=== PATIENT | female | born 1950 | race Caucasian/White ===

== ENCOUNTER 2018-02-14 05:01 | Emergency (ER) | payer MEDICAID, OTHER ==
[~2018-02-14] VITALS: Ht 162.6 cm; Wt 82.0 kg
[2018-02-14] MEDS ORDERED: SODIUM CHLORIDE 0.9% 500 ML IV ONE (06:43)
[2018-02-14] MEDS ORDERED: MECLIZINE 25MG TABLET PO ONE (06:45)
[2018-02-14 07:15] LABS: BASOPHILS % 0.7 % (0.0-2.0); HEMATOCRIT. 34.7 % (36.0-48.0); HEMOGLOBIN. 11.7 g/dL (12.0-16.0); LYMPHOCYTES % 11.1 % (20.0-50.0); MEAN CORPUSCULAR HEMOGLOBIN 29.4 pg (28.0-32.0); MEAN CORPUSCULAR VOLUME 87.5 fL (81.0-99.0); MEAN PLATELET VOLUME 7.8 fl (7.4-10.4); NEUTROPHILS % 82.2 % (40.0-76.0); PLATELET 324 x1000/uL (130-400); RED BLOOD CELL COUNT 3.97 mill/uL (4.2-5.4); RED CELL DISTRIBUTION WIDTH 13.6 % (11.6-14.6)
[2018-02-14 07:20] LABS: CHLORIDE 98 mEq/L (98-107)
[2018-02-14] MEDS ORDERED: MAGNESIUM 2 G PREMIX 50 ML IV ONE (08:15)
[2018-02-14 08:40] VITALS: BP 143/78
== END 2018-02-14 08:41 | disposition home or self-care (01) ==
LOC: ER 05:17
DX: R42 Dizziness and giddiness (principal); I10 Essential (primary) hypertension; D72.829 Elevated white blood cell count, unspecified; E83.42 Hypomagnesemia; D64.9 Anemia, unspecified; Z87.891 Personal history of nicotine dependence; Z90.49 Acquired absence of other specified parts of digestive tract
CPT/HCPCS: 36415; 70450; 71045; 80053; 83735; 85025; 93005; 96360; 99285; J7040; J8597

== ENCOUNTER 2018-02-23 01:00 | Inpatient (IN) | payer OTHER, MEDICAID ==
[~2018-02-23] VITALS: Ht 152.4 cm; Wt 80.7 kg
[2018-02-23] MEDS ORDERED: MECL-127 MT (03:46)
[2018-02-23] MEDS ORDERED: ONDANSETRON HCL 4MG/2ML VIAL IV STA (04:35)
[2018-02-23] MEDS ORDERED: SODIUM CHLORIDE 0.9% 1,000 ML IV ONE (04:35)
[2018-02-23] MEDS ORDERED: SODIUM CHLORIDE 0.9% 1,000 ML IV SCH (05:33)
[2018-02-23 06:16] LABS: BASOPHILS % 0.9 % (0.0-2.0); EOSINOPHILS % 1.3 % (0.0-5.0); HEMATOCRIT. 30.8 % (36.0-48.0); HEMOGLOBIN. 10.6 g/dL (12.0-16.0); LYMPHOCYTES % 16.4 % (20.0-50.0); MEAN CORPUSCULAR HEMOGLOBIN 30.3 pg (28.0-32.0); MEAN CORPUSCULAR VOLUME 87.6 fL (81.0-99.0); NEUTROPHILS % 77.4 % (40.0-76.0); PLATELET 308 x1000/uL (130-400); RED BLOOD CELL COUNT 3.51 mill/uL (4.2-5.4); RED CELL DISTRIBUTION WIDTH 13.5 % (11.6-14.6)
[2018-02-23 06:23] LABS: CHLORIDE 100 mEq/L (98-107)
[2018-02-23 09:30] VITALS: BP 118/78
[2018-02-23] MEDS ORDERED: ACETAMINOPHEN 325MG TABLET PO PRN (11:00)
[2018-02-23] MEDS ORDERED: DOCUSATE SODIUM 100MG CAPSULE PO PRN (11:00)
[2018-02-23] MEDS ORDERED: ONDANSETRON HCL 4MG/2ML VIAL IV PRN (11:00)
[2018-02-23] MEDS ORDERED: MECLIZINE 12.5MG TABLET PO PRN (11:00)
[2018-02-23] MEDS ORDERED: IPRATROPIUM/ALBUTEROL 0.5-3(2.5)MG/3ML NEB INH PRN (11:00)
[2018-02-23] MEDS ORDERED: CLONIDINE 0.1MG TABLET PO PRN (11:00)
[2018-02-23 12:00] VITALS: BP 100/51
[2018-02-23] MEDS ORDERED: LORA0.5T2 MT (12:14)
[2018-02-23] MEDS ORDERED: ARIP1SOL MT (12:14)
[2018-02-23] MEDS ORDERED: BENA1TAB19 MT (12:14)
[2018-02-23] MEDS ORDERED: MECL-109 MT (12:14)
[2018-02-23] MEDS ORDERED: METF500T6 MT (12:14)
[2018-02-23] MEDS: FLUTICASONE PROPIONATE 50MCG/SPRAY BOTTLE BOTHNSTRLS SCH (13:00)
[2018-02-23] MEDS ORDERED: DEXTROSE 50% WATER 50ML SYRINGE IV PRN (13:15)
[2018-02-23] MEDS: ENOXAPARIN 40MG/0.4ML SYR SUBCUT SCH (13:38)
[2018-02-23] MEDS: SODIUM CHLORIDE 0.9% 1,000 ML IV SCH (13:38)
[2018-02-23 16:00] VITALS: BP 99/55
[2018-02-23 16:03] LABS: CREATINE KINASE 56 IU/L (26-192); CREATINE KINASE MB FRACTION 0.5 ng/mL (0.5-3.6)
[2018-02-23] MEDS: BLOOD SUGAR DIAGNOSTIC STRIP TEST SCH ×2 (17:17→20:53)
[2018-02-23] MEDS: INSULIN LISPRO 100 UNITS/ML SUBCUT SCH ×2 (17:38→20:53)
[2018-02-23 19:57] VITALS: BP 138/57
[2018-02-24] VITALS: BP 113/57
[2018-02-24 00:28] LABS: CREATINE KINASE 54 IU/L (26-192)
[2018-02-24 00:30] LABS: CREATINE KINASE MB FRACTION 0.7 ng/mL (0.5-3.6)
[2018-02-24] MEDS: SODIUM CHLORIDE 0.9% 1,000 ML IV SCH (03:00)
[2018-02-24 04:00] VITALS: BP_SYST 113; BP_SYST 119; BP_SYST 128; BP_DIAS 61; BP_DIAS 75; BP_DIAS 78
[2018-02-24 06:32] LABS: BASOPHILS % 1.3 % (0.0-2.0); EOSINOPHILS % 7.3 % (0.0-5.0); HEMATOCRIT. 30.4 % (36.0-48.0); HEMOGLOBIN. 10.2 g/dL (12.0-16.0); LYMPHOCYTES % 41.8 % (20.0-50.0); MEAN CORPUSCULAR HEMOGLOBIN 29.3 pg (28.0-32.0); MEAN CORPUSCULAR VOLUME 87.5 fL (81.0-99.0); MEAN PLATELET VOLUME 8.3 fl (7.4-10.4); MONOCYTES % 6.2 % (2.0-8.0); NEUTROPHILS % 43.4 % (40.0-76.0); PLATELET 297 x1000/uL (130-400); RED BLOOD CELL COUNT 3.48 mill/uL (4.2-5.4); RED CELL DISTRIBUTION WIDTH 13.8 % (11.6-14.6)
[2018-02-24] MEDS: BLOOD SUGAR DIAGNOSTIC STRIP TEST SCH ×3 (06:55→16:48)
[2018-02-24] MEDS: INSULIN LISPRO 100 UNITS/ML SUBCUT SCH ×3 (06:55→16:48)
[2018-02-24] MEDS: FLUTICASONE PROPIONATE 50MCG/SPRAY BOTTLE BOTHNSTRLS SCH (08:23)
[2018-02-24] MEDS: ENOXAPARIN 40MG/0.4ML SYR SUBCUT SCH (08:23)
[2018-02-24 08:26] VITALS: BP 113/67
[2018-02-24 12:39] VITALS: BP 101/53
[2018-02-24 16:49] VITALS: BP 132/68
[2018-02-24 17:01] VITALS: BP 132/68
== END 2018-02-24 17:54 | disposition home or self-care (01) | DRG 149 ==
LOC: ER 01:00 → 8WST 05:34 → EDBEDREQ 05:34 → ENRESERV 06:53
PROVIDERS: ADMIT Internal Medicine; ATTEND Internal Medicine
DX: R42 Dizziness and giddiness (principal); E11.9 Type 2 diabetes mellitus without complications; I10 Essential (primary) hypertension; R26.9 Unspecified abnormalities of gait and mobility; F41.9 Anxiety disorder, unspecified; Z87.891 Personal history of nicotine dependence; Z90.49 Acquired absence of other specified parts of digestive tract; Z79.899 Other long term (current) drug therapy
CPT/HCPCS: 36415; 70450; 70544; 70553; 71045; 80048; 80053; 82550; 82553; 82962; 84484; 85025; 93005; 93306; 93880; 96361; 96374; 97162; 99285; J1650; J2405; J7030

== ENCOUNTER 2018-10-18 14:51 | Inpatient (IN) | payer MEDICARE, MEDICAID ==
[~2018-10-18] VITALS: Ht 154.9 cm; Wt 53.7 kg
[~2018-10-18 14:51] MED LIST: ARIP1SOL MT; BENA1TAB19 MT; LORA0.5T2 MT; MECL-109 MT; MECL-127 MT; METF-414 MT
[2018-10-18] MEDS ORDERED: IPRATROPIUM BROMIDE (0.02%) 0.5MG/2.5ML NEB HHN STA (16:44)
[2018-10-18] MEDS ORDERED: ALBUTEROL (0.083%) 2.5MG/3ML NEB HHN STA (16:44)
[2018-10-18] MEDS ORDERED: METHYLPREDNISOLONE SOD SUCC 125 MG/2 ML VIAL IV STA (16:44)
[2018-10-18 17:40] LABS: BASOPHILS % 0.7 % (0.0-2.0); EOSINOPHILS % 11.4 % (0.0-5.0); HEMATOCRIT. 36.3 % (36.0-48.0); HEMOGLOBIN. 12.2 g/dL (12.0-16.0); LYMPHOCYTES % 19.1 % (20.0-50.0); MEAN CORPUSCULAR HEMOGLOBIN 30.2 pg (28.0-32.0); MEAN CORPUSCULAR VOLUME 89.7 fL (81.0-99.0); MEAN PLATELET VOLUME 7.8 fl (7.4-10.4); MONOCYTES % 5.7 % (2.0-8.0); NEUTROPHILS % 63.1 % (40.0-76.0); PLATELET 369 x1000/uL (130-400); RED BLOOD CELL COUNT 4.05 mill/uL (4.2-5.4); RED CELL DISTRIBUTION WIDTH 13.5 % (11.6-14.6)
[2018-10-18 17:47] LABS: CHLORIDE 93 mEq/L (98-107)
[2018-10-18] MEDS ORDERED: ALBUTEROL (0.083%) 2.5MG/3ML NEB HHN ONE (19:15)
[2018-10-18] MEDS ORDERED: AZITHROMYCIN 500 MG in DEXT 5% WATER 250 ML IV SCH (20:00)
[2018-10-18] MEDS ORDERED: ACETAMINOPHEN 325MG TABLET PO PRN (20:00)
[2018-10-18] MEDS ORDERED: DOCUSATE SODIUM 100MG CAPSULE PO PRN (20:00)
[2018-10-18] MEDS ORDERED: SODIUM CHLORIDE 0.9% 1,000 ML IV ONE (20:00)
[2018-10-18] MEDS ORDERED: ONDANSETRON HCL 4MG/2ML INJ IV PRN (20:00)
[2018-10-18] MEDS ORDERED: LORAZEPAM 2MG/ML CPJ IV PRN (20:00)
[2018-10-18] MEDS ORDERED: IPRATROPIUM/ALBUTEROL 0.5-3(2.5)MG/3ML NEB INH PRN (20:00)
[2018-10-18] MEDS ORDERED: CLONIDINE 0.1MG TABLET PO PRN (20:00)
[2018-10-18] MEDS ORDERED: CEFTRIAXONE 1 G PREMIX 50 ML IV NR (21:00)
[2018-10-18 23:30] VITALS: BP 149/92
[2018-10-19 00:08] VITALS: BP 149/92
[2018-10-19] MEDS ORDERED: PARO40TA75 PO (00:55)
[2018-10-19] MEDS ORDERED: MECL-109 PO (00:55)
[2018-10-19] MEDS ORDERED: ARIP5TAB19 PO (00:55)
[2018-10-19] MEDS: SODIUM CHLORIDE 0.9% 1,000 ML IV SCH ×2 (02:21→14:50)
[2018-10-19 04:00] VITALS: BP 116/76
[2018-10-19] MEDS ORDERED: DEXTROSE 50% WATER 50ML SYRINGE IV PRN (05:45)
[2018-10-19] MEDS: AZITHROMYCIN 500 MG in DEXT 5% WATER 250 ML IV SCH (05:53)
[2018-10-19] MEDS: METHYLPREDNISOLONE SOD SUCC 40 MG/ML VIAL IV SCH ×4 (05:55→23:44)
[2018-10-19] MEDS: BLOOD SUGAR DIAGNOSTIC STRIP TEST SCH ×4 (06:38→21:00)
[2018-10-19] MEDS: INSULIN LISPRO 100 UNITS/ML SUBCUT SCH ×4 (07:22→21:42)
[2018-10-19 07:41] LABS: BASOPHILS % 0.1 % (0.0-2.0); EOSINOPHILS % 0.1 % (0.0-5.0); HEMATOCRIT. 33.9 % (36.0-48.0); HEMOGLOBIN. 11.1 g/dL (12.0-16.0); LYMPHOCYTES % 9.2 % (20.0-50.0); MEAN CORPUSCULAR HEMOGLOBIN 29.6 pg (28.0-32.0); MEAN CORPUSCULAR VOLUME 90.2 fL (81.0-99.0); MEAN PLATELET VOLUME 8.1 fl (7.4-10.4); NEUTROPHILS % 89.6 % (40.0-76.0); PLATELET 343 x1000/uL (130-400); RED BLOOD CELL COUNT 3.76 mill/uL (4.2-5.4); RED CELL DISTRIBUTION WIDTH 13.2 % (11.6-14.6)
[2018-10-19 07:59] LABS: CHLORIDE 96 mEq/L (98-107)
[2018-10-19 08:00] VITALS: BP 122/65
[2018-10-19] MEDS: IPRATROPIUM/ALBUTEROL 0.5-3(2.5)MG/3ML NEB HHN SCH ×4 (09:32→21:08)
[2018-10-19] MEDS: ENOXAPARIN 40MG/0.4ML SYR SUBCUT SCH (09:35)
[2018-10-19 12:00] VITALS: BP 112/66
[2018-10-19] MEDS ORDERED: CEFTRIAXONE 1 G PREMIX 50 ML IV SCH (14:00)
[2018-10-19 16:00] VITALS: BP 102/63
[2018-10-19] MEDS ORDERED: MEDICATION NOT ON FORMULARY EA (Meclizine Hcl 25 MG) PO SCH (16:30)
[2018-10-19] MEDS ORDERED: LORAZEPAM MT PRN (16:30)
[2018-10-19] MEDS ORDERED: MECLIZINE 25MG TABLET PO PRN (17:00)
[2018-10-19] MEDS ORDERED: LORAZEPAM 0.5MG TABLET PO PRN (17:00)
[2018-10-19 20:00] VITALS: BP 143/62
[2018-10-19] MEDS: CEFTRIAXONE 1 G PREMIX 50 ML IV SCH (21:43)
[2018-10-19] MEDS: GUAIFENESIN/CODEINE 200-20MG/10ML UDC PO PRN (23:47)
[2018-10-20] VITALS: BP 143/62
[2018-10-20] MEDS: IPRATROPIUM/ALBUTEROL 0.5-3(2.5)MG/3ML NEB HHN SCH ×6 (01:05→14:01)
[2018-10-20 04:00] VITALS: BP 157/79
[2018-10-20] MEDS: AZITHROMYCIN 500 MG in DEXT 5% WATER 250 ML IV SCH (04:55)
[2018-10-20] MEDS: METHYLPREDNISOLONE SOD SUCC 40 MG/ML VIAL IV SCH ×4 (05:10→23:01)
[2018-10-20] MEDS: GUAIFENESIN/CODEINE 200-20MG/10ML UDC PO PRN ×2 (05:10→15:41)
[2018-10-20] MEDS: BLOOD SUGAR DIAGNOSTIC STRIP TEST SCH ×4 (06:42→21:24)
[2018-10-20] MEDS: INSULIN LISPRO 100 UNITS/ML SUBCUT SCH ×4 (06:45→21:40)
[2018-10-20 08:00] VITALS: BP 110/59
[2018-10-20] MEDS ORDERED: HYDROCHLOROTHIAZIDE MT SCH (09:00)
[2018-10-20] MEDS ORDERED: [UNRECOGNIZED DRUG - OTHER] MT SCH (09:00)
[2018-10-20] MEDS ORDERED: BENAZEPRIL MT SCH (09:00)
[2018-10-20] MEDS: BENAZEPRIL 10MG TABLET PO SCH (09:15)
[2018-10-20] MEDS: ARIPIPRAZOLE 5MG TABLET PO SCH (09:15)
[2018-10-20] MEDS: ENOXAPARIN 40MG/0.4ML SYR SUBCUT SCH (09:15)
[2018-10-20] MEDS: HYDROCHLOROTHIAZIDE 25MG TABLET PO SCH (09:15)
[2018-10-20 12:00] VITALS: BP 109/64
[2018-10-20 16:00] VITALS: BP 91/63
[2018-10-20 20:00] VITALS: BP 135/72
[2018-10-20] MEDS: CEFTRIAXONE 1 G PREMIX 50 ML IV SCH (21:24)
[2018-10-21] VITALS: BP 116/63
[2018-10-21] MEDS: IPRATROPIUM/ALBUTEROL 0.5-3(2.5)MG/3ML NEB HHN SCH ×4 (02:12→21:00)
[2018-10-21 04:00] VITALS: BP 156/90
[2018-10-21] MEDS: METHYLPREDNISOLONE SOD SUCC 40 MG/ML VIAL IV SCH ×3 (05:10→17:54)
[2018-10-21] MEDS: AZITHROMYCIN 500 MG in DEXT 5% WATER 250 ML IV SCH (05:10)
[2018-10-21] MEDS: BLOOD SUGAR DIAGNOSTIC STRIP TEST SCH ×4 (06:18→20:18)
[2018-10-21] MEDS: INSULIN LISPRO 100 UNITS/ML SUBCUT SCH ×4 (06:18→20:18)
[2018-10-21 08:00] VITALS: BP 134/64
[2018-10-21] MEDS: HYDROCHLOROTHIAZIDE 25MG TABLET PO SCH (09:22)
[2018-10-21] MEDS: GUAIFENESIN/CODEINE 200-20MG/10ML UDC PO PRN ×2 (09:22→17:54)
[2018-10-21] MEDS: BENAZEPRIL 10MG TABLET PO SCH (09:22)
[2018-10-21] MEDS: ARIPIPRAZOLE 5MG TABLET PO SCH (09:22)
[2018-10-21] MEDS: ENOXAPARIN 40MG/0.4ML SYR SUBCUT SCH (09:23)
[2018-10-21 12:00] VITALS: BP 115/70
[2018-10-21 15:15] LABS: BG BASE EXCESS 1.8 mmol/L (-2.0-2.0); BG CARBOXYHEMOGLOBIN 0.3 % (0.5-1.5); BG DEOXYHEMOGLOBIN 4.5 % (0.0-5.0); BG HCO3 ACT 25.6 mmol/L (22.0-26.0); BG METHEMOGLOBIN 0.3 % (0.0-1.5); BG OXYGEN SATURATION 95.5 % (92.0-98.5); BG OXYHEMOGLOBIN 94.9 % (94.0-97.0); BG PCO2 37.2 mmHg (35.0-45.0); BG PH 7.455 (7.350-7.450); BG PO2 77.5 mmHg (75.0-100.0); BG SAMPLE SITE LEFT RADIAL; BG TOTAL HEMOGLOBIN 11.4 g/dL (12.0-18.0); BG VENT MODE NASAL CANNULA
[2018-10-21 16:00] VITALS: BP 121/67
[2018-10-21 17:46] LABS: BG CARBOXYHEMOGLOBIN 0.3 % (0.5-1.5); BG DEOXYHEMOGLOBIN 7.4 % (0.0-5.0); BG HCO3 ACT 25.2 mmol/L (22.0-26.0); BG METHEMOGLOBIN 0.3 % (0.0-1.5); BG OXYGEN SATURATION 92.6 % (92.0-98.5); BG PCO2 38.8 mmHg (35.0-45.0); BG PH 7.431 (7.350-7.450); BG PO2 65.5 mmHg (75.0-100.0); BG SAMPLE SITE RIGHT RADIAL; BG TOTAL HEMOGLOBIN 11.8 g/dL (12.0-18.0); BG VENT MODE ROOM AIR
[2018-10-21 20:00] VITALS: BP 126/72
[2018-10-21] MEDS: CEFTRIAXONE 1 G PREMIX 50 ML IV SCH (20:18)
[2018-10-22] VITALS: BP 130/66
[2018-10-22] MEDS: METHYLPREDNISOLONE SOD SUCC 40 MG/ML VIAL IV SCH ×4 (00:05→17:28)
[2018-10-22] MEDS: IPRATROPIUM/ALBUTEROL 0.5-3(2.5)MG/3ML NEB HHN SCH ×6 (01:01→20:41)
[2018-10-22 04:00] VITALS: BP 137/60
[2018-10-22] MEDS: INSULIN LISPRO 100 UNITS/ML SUBCUT SCH ×4 (06:26→21:51)
[2018-10-22] MEDS: BLOOD SUGAR DIAGNOSTIC STRIP TEST SCH ×4 (06:26→21:51)
[2018-10-22 08:00] VITALS: BP 137/58
[2018-10-22] MEDS: ARIPIPRAZOLE 5MG TABLET PO SCH (08:58)
[2018-10-22] MEDS: BENAZEPRIL 10MG TABLET PO SCH (08:58)
[2018-10-22] MEDS: HYDROCHLOROTHIAZIDE 25MG TABLET PO SCH (08:59)
[2018-10-22] MEDS: AZITHROMYCIN 500 MG TABLET PO SCH (08:59)
[2018-10-22] MEDS: ENOXAPARIN 40MG/0.4ML SYR SUBCUT SCH (09:01)
[2018-10-22 12:00] VITALS: BP 110/55
[2018-10-22 16:00] VITALS: BP 144/63
[2018-10-22 20:00] VITALS: BP 146/74
[2018-10-22] MEDS: CEFTRIAXONE 1 G PREMIX 50 ML IV SCH (21:50)
[2018-10-23] VITALS: BP 167/71
[2018-10-23] MEDS: METHYLPREDNISOLONE SOD SUCC 40 MG/ML VIAL IV SCH ×4 (00:35→17:46)
[2018-10-23] MEDS: IPRATROPIUM/ALBUTEROL 0.5-3(2.5)MG/3ML NEB HHN SCH ×5 (00:51→16:54)
[2018-10-23 04:00] VITALS: BP 167/71
[2018-10-23 06:58] LABS: BASOPHILS % 0.1 % (0.0-2.0); HEMATOCRIT. 32.8 % (36.0-48.0); HEMOGLOBIN. 11.1 g/dL (12.0-16.0); LYMPHOCYTES % 10.7 % (20.0-50.0); MEAN CORPUSCULAR HEMOGLOBIN 30.2 pg (28.0-32.0); MEAN CORPUSCULAR VOLUME 89.2 fL (81.0-99.0); MEAN PLATELET VOLUME 8.4 fl (7.4-10.4); MONOCYTES % 3.7 % (2.0-8.0); NEUTROPHILS % 85.5 % (40.0-76.0); PLATELET 336 x1000/uL (130-400); RED BLOOD CELL COUNT 3.67 mill/uL (4.2-5.4); RED CELL DISTRIBUTION WIDTH 13.6 % (11.6-14.6)
[2018-10-23] MEDS: INSULIN LISPRO 100 UNITS/ML SUBCUT SCH ×3 (07:02→17:46)
[2018-10-23] MEDS: BLOOD SUGAR DIAGNOSTIC STRIP TEST SCH ×3 (07:02→17:41)
[2018-10-23 07:59] LABS: CHLORIDE 96 mEq/L (98-107)
[2018-10-23 08:00] VITALS: BP 128/65
[2018-10-23 08:09] LABS: CREATINE KINASE MB FRACTION 1.6 ng/mL (0.5-3.6)
[2018-10-23 08:11] LABS: LDL CHOLESTEROL 108 mg/dL (5-100)
[2018-10-23 08:12] LABS: CREATINE KINASE 68 IU/L (26-192); HDL CHOLESTEROL 60 mg/dL (40-59)
[2018-10-23] MEDS: HYDROCHLOROTHIAZIDE 25MG TABLET PO SCH (09:40)
[2018-10-23] MEDS: AZITHROMYCIN 500 MG TABLET PO SCH (09:40)
[2018-10-23] MEDS: ARIPIPRAZOLE 5MG TABLET PO SCH (09:40)
[2018-10-23] MEDS: BENAZEPRIL 10MG TABLET PO SCH (09:41)
[2018-10-23] MEDS: GUAIFENESIN/CODEINE 200-20MG/10ML UDC PO PRN (09:42)
[2018-10-23] MEDS: ENOXAPARIN 40MG/0.4ML SYR SUBCUT SCH (09:43)
[2018-10-23 12:00] VITALS: BP 95/49
[2018-10-23 16:00] VITALS: BP 138/69
[2018-10-23 16:49] VITALS: BP 138/69
== END 2018-10-23 19:00 | disposition home or self-care (01) | DRG 189 ==
LOC: ER 14:51 → 5WST 18:43 → EDBEDREQ 18:54 → ENRESERV 21:46
PROVIDERS: ADMIT Internal Medicine; ATTEND Internal Medicine
DX: J96.01 Acute respiratory failure with hypoxia (principal); J44.1 Chronic obstructive pulmonary disease with (acute) exacerbation; R65.10 Systemic inflammatory response syndrome (SIRS) of non-infectious origin without acute organ dysfunction; J45.901 Unspecified asthma with (acute) exacerbation; I47.1 Supraventricular tachycardia; I10 Essential (primary) hypertension; E11.9 Type 2 diabetes mellitus without complications; E66.9 Obesity, unspecified; F99 Mental disorder, not otherwise specified; E21.3 Hyperparathyroidism, unspecified; E78.00 Pure hypercholesterolemia, unspecified; F41.9 Anxiety disorder, unspecified; Z90.49 Acquired absence of other specified parts of digestive tract; Z79.84 Long term (current) use of oral hypoglycemic drugs; Z79.899 Other long term (current) drug therapy; Z91.041 Radiographic dye allergy status; Z68.22 Body mass index [BMI] 22.0-22.9, adult
CPT/HCPCS: 36415; 36600; 71045; 78582; 80048; 80061; 82375; 82550; 82553; 82805; 82962; 83735; 83880; 84443; 84484; 93005; 93306; 93970; 94640; 96374; 99285; A9558; J0456; J0696; J1650; J1815; J2920; J2930; J7030; J7060; J7611; J7620

== ENCOUNTER 2019-02-08 21:38 | Inpatient (IN) | payer MEDICARE, MEDICAID ==
[~2019-02-08] VITALS: Ht 152.4 cm; Wt 83.5 kg
[~2019-02-08 21:38] MED LIST changes: -ARIP1SOL MT; +ARIP5TAB19 PO; -BENA1TAB19 MT; -MECL-109 MT; +MECL-109 PO; -MECL-127 MT; +PARO40TA75 PO
[2019-02-08] MEDS ORDERED: IPRATROPIUM BROMIDE (0.02%) 0.5MG/2.5ML NEB HHN STA (22:08)
[2019-02-08] MEDS ORDERED: ALBUTEROL (0.083%) 2.5MG/3ML NEB HHN STA (22:08)
[2019-02-08] MEDS ORDERED: DILTIAZEM HCL 5MG/ML 5ML VIAL IV ONE (22:15)
[2019-02-08] MEDS ORDERED: ONDANSETRON HCL 4MG/2ML INJ IV ONE (22:15)
[2019-02-08] MEDS ORDERED: METHYLPREDNISOLONE SOD SUCC 125 MG/2 ML VIAL IV ONE (22:15)
[2019-02-08 23:06] LABS: BASOPHILS % 0.8 % (0.0-2.0); EOSINOPHILS % 12.3 % (0.0-5.0); HEMATOCRIT. 37.6 % (36.0-48.0); HEMOGLOBIN. 12.7 g/dL (12.0-16.0); LYMPHOCYTES % 19.5 % (20.0-50.0); MEAN CORPUSCULAR HEMOGLOBIN 30.1 pg (28.0-32.0); MEAN CORPUSCULAR VOLUME 88.7 fL (81.0-99.0); MEAN PLATELET VOLUME 8.3 fl (7.4-10.4); MONOCYTES % 4.3 % (2.0-8.0); NEUTROPHILS % 63.1 % (40.0-76.0); PLATELET 298 x1000/uL (130-400); RED BLOOD CELL COUNT 4.23 mill/uL (4.2-5.4); RED CELL DISTRIBUTION WIDTH 13.7 % (11.6-14.6)
[2019-02-08 23:10] LABS: CHLORIDE 94 mEq/L (98-107)
[2019-02-08] MEDS ORDERED: CEFTRIAXONE 1 G PREMIX 50 ML IV ONE (23:45)
[2019-02-08] MEDS ORDERED: SODIUM CHLORIDE 0.9% 1000ML BAG (SEPSIS BOLUS) IV ONE (23:45)
[2019-02-09] MEDS ORDERED: HYDROCODONE/ACETAMINOPHEN 5/325MG TABLET PO ONE (01:45)
[2019-02-09 03:00] VITALS: BP 118/71
[2019-02-09] MEDS ORDERED: IPRATROPIUM/ALBUTEROL 0.5-3(2.5)MG/3ML NEB HHN PRN (03:45)
[2019-02-09] MEDS ORDERED: MORPHINE SULFATE 2 MG/ML CPJ (NOT FOR IM USE) IV PRN (03:45)
[2019-02-09] MEDS ORDERED: LEVOFLOXACIN 500MG PREMIX 100 ML IV SCH ×2 (03:45→04:00)
[2019-02-09 04:00] VITALS: BP 118/71
[2019-02-09] MEDS ORDERED: BENA1TAB19 MT (04:03)
[2019-02-09] MEDS ORDERED: FLUT1AER5 INH (04:03)
[2019-02-09] MEDS ORDERED: ONDA4TAB50 PO (04:03)
[2019-02-09] MEDS ORDERED: NON FORMULARY PATIENT HOME MED XX SCH (04:15)
[2019-02-09] MEDS ORDERED: LORAZEPAM 1MG TABLET PO PRN (04:15)
[2019-02-09] MEDS ORDERED: ONDANSETRON HCL 4MG TABLET PO PRN ×2 (04:30)
[2019-02-09] MEDS ORDERED: DEXTROSE 50% WATER 50ML SYRINGE IV PRN (04:30)
[2019-02-09] MEDS: IPRATROPIUM/ALBUTEROL 0.5-3(2.5)MG/3ML NEB HHN SCH ×6 (04:50→23:47)
[2019-02-09] MEDS ORDERED: ALBUTEROL (0.083%) 2.5MG/3ML NEB HHN SCH (06:00)
[2019-02-09] MEDS: BLOOD SUGAR DIAGNOSTIC STRIP TEST SCH ×4 (07:06→21:30)
[2019-02-09] MEDS: INSULIN LISPRO 100 UNITS/ML SUBCUT SCH ×4 (07:08→21:00)
[2019-02-09 08:00] VITALS: BP 131/71
[2019-02-09] MEDS: BUDESONIDE 0.5MG/2ML NEB HHN SCH ×2 (08:09→20:14)
[2019-02-09] MEDS: PAROXETINE HCL 10MG TABLET PO SCH (08:44)
[2019-02-09] MEDS: GUAIFENESIN 200MG/10ML SUGAR FREE UDC PO PRN ×3 (08:44→21:40)
[2019-02-09] MEDS: HYDROCHLOROTHIAZIDE 25MG TABLET PO SCH (08:44)
[2019-02-09] MEDS: BENAZEPRIL 10MG TABLET PO SCH (08:44)
[2019-02-09] MEDS: METFORMIN HCL 500MG TABLET PO SCH ×2 (08:44→17:24)
[2019-02-09] MEDS: METHYLPREDNISOLONE SOD SUCC 40 MG/ML VIAL IV SCH ×2 (08:45→16:08)
[2019-02-09] MEDS: LEVOFLOXACIN 500MG PREMIX 100 ML IV SCH (08:45)
[2019-02-09] MEDS: ENOXAPARIN 40MG/0.4ML SYR SUBCUT SCH (08:46)
[2019-02-09] MEDS ORDERED: [UNRECOGNIZED DRUG - OTHER] MT SCH (09:00)
[2019-02-09] MEDS ORDERED: BENAZEPRIL MT SCH (09:00)
[2019-02-09] MEDS ORDERED: HYDROCHLOROTHIAZIDE MT SCH (09:00)
[2019-02-09 09:04] LABS: BG BASE EXCESS -0.4 mmol/L (-2.0-2.0); BG CARBOXYHEMOGLOBIN 0.2 % (0.5-1.5); BG DEOXYHEMOGLOBIN 6.7 % (0.0-5.0); BG HCO3 ACT 25.5 mmol/L (22.0-26.0); BG METHEMOGLOBIN 0.3 % (0.0-1.5); BG OXYGEN SATURATION 93.3 % (92.0-98.5); BG OXYHEMOGLOBIN 92.8 % (94.0-97.0); BG PH 7.353 (7.350-7.450); BG PO2 75.3 mmHg (75.0-100.0); BG SAMPLE SITE RIGHT RADIAL; BG TOTAL HEMOGLOBIN 12.4 g/dL (12.0-18.0); BG VENT MODE NASAL CANNULA
[2019-02-09 09:57] LABS: BASOPHILS % 0.3 % (0.0-2.0); HEMATOCRIT. 31.6 % (36.0-48.0); HEMOGLOBIN. 10.6 g/dL (12.0-16.0); LYMPHOCYTES % 11.6 % (20.0-50.0); MEAN CORPUSCULAR HEMOGLOBIN 30.2 pg (28.0-32.0); MEAN CORPUSCULAR VOLUME 89.6 fL (81.0-99.0); MEAN PLATELET VOLUME 8.3 fl (7.4-10.4); MONOCYTES % 1.6 % (2.0-8.0); NEUTROPHILS % 86.5 % (40.0-76.0); PLATELET 281 x1000/uL (130-400); RED BLOOD CELL COUNT 3.53 mill/uL (4.2-5.4); RED CELL DISTRIBUTION WIDTH 13.9 % (11.6-14.6)
[2019-02-09 10:04] LABS: CHLORIDE 100 mEq/L (98-107)
[2019-02-09 12:00] VITALS: BP 129/83
[2019-02-09 16:00] VITALS: BP 126/84
[2019-02-09 18:59] LABS: *BARBITURATES SCREEN URINE NEGATIVE (NEGATIVE)
[2019-02-09 19:00] LABS: PHENCYCLIDINE URINE SCREEN NEGATIVE (NEGATIVE)
[2019-02-09 19:01] LABS: CANNABINOID URINE SCREEN NEGATIVE (NEGATIVE)
[2019-02-09 19:05] LABS: *AMPHETAMINES SCREEN URINE NEGATIVE (NEGATIVE)
[2019-02-09 19:06] LABS: *BENZODIAZEPINES SCREEN URINE NEGATIVE (NEGATIVE); *COCAINE SCREEN URINE NEGATIVE (NEGATIVE); METHADONE URINE SCREEN NEGATIVE (NEGATIVE); OPIATES URINE SCREEN PRESUMTIVE POSITIVE (NEGATIVE)
[2019-02-09 20:00] VITALS: BP 124/69
[2019-02-09] MEDS: ARIPIPRAZOLE 5MG TABLET PO SCH (21:40)
[2019-02-10] VITALS: BP 111/59
[2019-02-10] MEDS: METHYLPREDNISOLONE SOD SUCC 40 MG/ML VIAL IV SCH ×3 (00:40→17:18)
[2019-02-10] MEDS: GUAIFENESIN 200MG/10ML SUGAR FREE UDC PO PRN ×4 (01:44→22:38)
[2019-02-10 04:00] VITALS: BP 116/62
[2019-02-10] MEDS: IPRATROPIUM/ALBUTEROL 0.5-3(2.5)MG/3ML NEB HHN SCH ×2 (04:18→09:29)
[2019-02-10] MEDS: BLOOD SUGAR DIAGNOSTIC STRIP TEST SCH ×4 (05:55→21:30)
[2019-02-10] MEDS: METFORMIN HCL 500MG TABLET PO SCH ×2 (06:17→17:18)
[2019-02-10] MEDS: INSULIN LISPRO 100 UNITS/ML SUBCUT SCH ×4 (06:19→21:30)
[2019-02-10 07:57] VITALS: BP 117/60
[2019-02-10] MEDS: LEVOFLOXACIN 500MG PREMIX 100 ML IV SCH (08:52)
[2019-02-10] MEDS: HYDROCHLOROTHIAZIDE 25MG TABLET PO SCH (08:53)
[2019-02-10] MEDS: PAROXETINE HCL 10MG TABLET PO SCH (08:53)
[2019-02-10] MEDS: BENAZEPRIL 10MG TABLET PO SCH (08:54)
[2019-02-10] MEDS: ENOXAPARIN 40MG/0.4ML SYR SUBCUT SCH (08:54)
[2019-02-10] MEDS: BUDESONIDE 0.5MG/2ML NEB HHN SCH ×2 (09:30→20:40)
[2019-02-10 11:45] LABS: BG BASE EXCESS -0.2 mmol/L (-2.0-2.0); BG CARBOXYHEMOGLOBIN 0.4 % (0.5-1.5); BG DEOXYHEMOGLOBIN 11.6 % (0.0-5.0); BG FRACTION INSPIRED OXYGEN 21; BG HCO3 ACT 24.9 mmol/L (22.0-26.0); BG METHEMOGLOBIN 0.2 % (0.0-1.5); BG OXYGEN SATURATION 88.3 % (92.0-98.5); BG OXYHEMOGLOBIN 87.8 % (94.0-97.0); BG PO2 55.3 mmHg (75.0-100.0); BG SAMPLE SITE RIGHT BRACHIAL; BG TOTAL HEMOGLOBIN 12.3 g/dL (12.0-18.0); BG VENT MODE ROOM AIR
[2019-02-10] MEDS: BENZONATATE 100MG CAPSULE PO PRN ×2 (11:55→20:49)
[2019-02-10 12:00] VITALS: BP 118/59
[2019-02-10] MEDS: IPRATROPIUM BROMIDE (0.02%) 0.5MG/2.5ML NEB HHN SCH ×3 (12:34→20:40)
[2019-02-10 16:00] VITALS: BP 105/61
[2019-02-10 20:00] VITALS: BP 152/99
[2019-02-10] MEDS: ARIPIPRAZOLE 5MG TABLET PO SCH (20:49)
[2019-02-11] VITALS: BP 108/47
[2019-02-11] MEDS: IPRATROPIUM BROMIDE (0.02%) 0.5MG/2.5ML NEB HHN SCH ×5 (00:51→15:18)
[2019-02-11] MEDS: METHYLPREDNISOLONE SOD SUCC 40 MG/ML VIAL IV SCH ×3 (01:25→16:30)
[2019-02-11] MEDS: GUAIFENESIN 200MG/10ML SUGAR FREE UDC PO PRN ×3 (03:23→18:17)
[2019-02-11 04:00] VITALS: BP 122/7
[2019-02-11] MEDS: BLOOD SUGAR DIAGNOSTIC STRIP TEST SCH ×3 (06:25→17:40)
[2019-02-11] MEDS: INSULIN LISPRO 100 UNITS/ML SUBCUT SCH ×3 (06:25→17:15)
[2019-02-11] MEDS: METFORMIN HCL 500MG TABLET PO SCH ×2 (06:31→17:48)
[2019-02-11] MEDS: BENZONATATE 100MG CAPSULE PO PRN (06:34)
[2019-02-11] MEDS: BUDESONIDE 0.5MG/2ML NEB HHN SCH (07:40)
[2019-02-11 08:00] VITALS: BP 109/64
[2019-02-11] MEDS: BENAZEPRIL 10MG TABLET PO SCH (08:52)
[2019-02-11] MEDS: HYDROCHLOROTHIAZIDE 25MG TABLET PO SCH (08:52)
[2019-02-11] MEDS: PAROXETINE HCL 10MG TABLET PO SCH (08:58)
[2019-02-11] MEDS: LEVOFLOXACIN 500MG PREMIX 100 ML IV SCH (08:58)
[2019-02-11] MEDS: ENOXAPARIN 40MG/0.4ML SYR SUBCUT SCH (08:58)
[2019-02-11 12:00] VITALS: BP 139/70
[2019-02-11 16:00] VITALS: BP 142/80
[2019-02-11 18:04] VITALS: BP 139/69
== END 2019-02-11 18:35 | disposition home or self-care (01) | DRG 189 ==
LOC: ER 21:38 → 5WST 02-09 01:17 → EDBEDREQTM 02-09 01:25 → EDBEDREQ 02-09 01:25 → ENRESERV 02-09 02:15
PROVIDERS: ADMIT Internal Medicine; ATTEND Internal Medicine
DX: J96.00 Acute respiratory failure, unspecified whether with hypoxia or hypercapnia (principal); J44.1 Chronic obstructive pulmonary disease with (acute) exacerbation; E87.1 Hypo-osmolality and hyponatremia; I10 Essential (primary) hypertension; F41.9 Anxiety disorder, unspecified; E11.9 Type 2 diabetes mellitus without complications; E87.8 Other disorders of electrolyte and fluid balance, not elsewhere classified; E66.9 Obesity, unspecified; Z87.891 Personal history of nicotine dependence; Z90.49 Acquired absence of other specified parts of digestive tract; Z91.09 Other allergy status, other than to drugs and biological substances; Z71.3 Dietary counseling and surveillance; Z68.35 Body mass index [BMI] 35.0-35.9, adult
CPT/HCPCS: 36415; 36600; 71045; 80048; 80305; 82375; 82805; 82962; 83036; 83605; 83880; 84145; 84484; 93005; 94640; 94644; 99285; C1893; J0696; J1650; J1815; J1956; J2405; J2920; J2930; J3490; J7030; J7040; J7611; J7620; J7626

== ENCOUNTER 2019-05-01 15:11 | Inpatient (IN) | payer MEDICARE, MEDICAID ==
[~2019-05-01] VITALS: Ht 154.9 cm; Wt 71.7 kg
[~2019-05-01 15:11] MED LIST changes: +BENA1TAB19 MT; +FLUT1AER5 INH; +ONDA4TAB50 PO
[2019-05-01] MEDS ORDERED: METHYLPREDNISOLONE SOD SUCC 125 MG/2 ML VIAL IV STA (15:33)
[2019-05-01] MEDS ORDERED: IPRATROPIUM BROMIDE (0.02%) 0.5MG/2.5ML NEB HHN STA (15:33)
[2019-05-01] MEDS ORDERED: ALBUTEROL (0.083%) 2.5MG/3ML NEB HHN STA (15:33)
[2019-05-01] MEDS ORDERED: MAGNESIUM 2 G PREMIX 50 ML IV NR (16:00)
[2019-05-01 16:17] LABS: BASOPHILS % 1.2 % (0.0-2.0); HEMATOCRIT. 36.1 % (36.0-48.0); HEMOGLOBIN. 11.9 g/dL (12.0-16.0); LYMPHOCYTES % 25.2 % (20.0-50.0); MEAN CORPUSCULAR HEMOGLOBIN 29.2 pg (28.0-32.0); MEAN CORPUSCULAR VOLUME 88.7 fL (81.0-99.0); MEAN PLATELET VOLUME 7.8 fl (7.4-10.4); MONOCYTES % 7.1 % (2.0-8.0); NEUTROPHILS % 53.5 % (40.0-76.0); PLATELET 345 x1000/uL (130-400); RED BLOOD CELL COUNT 4.07 mill/uL (4.2-5.4); RED CELL DISTRIBUTION WIDTH 13.7 % (11.6-14.6)
[2019-05-01 16:22] LABS: CHLORIDE 95 mEq/L (98-107)
[2019-05-01] MEDS ORDERED: DEXTROSE 50% WATER 50ML SYRINGE IV PRN (20:45)
[2019-05-01] MEDS ORDERED: MAGNESIUM/ALUMINUM HYDROXIDE/SIMETHICONE 30ML UDC PO PRN (20:45)
[2019-05-01] MEDS ORDERED: IPRATROPIUM/ALBUTEROL 0.5-3(2.5)MG/3ML NEB HHN PRN (20:45)
[2019-05-01] MEDS ORDERED: CLONIDINE 0.1MG TABLET PO PRN (20:45)
[2019-05-01] MEDS ORDERED: DIPHENHYDRAMINE 50MG/ML VIAL IV PRN (20:45)
[2019-05-01] MEDS ORDERED: HYDRALAZINE 20MG/ML VIAL IV PRN (20:45)
[2019-05-01] MEDS ORDERED: GUAIFENESIN 200MG/10ML SUGAR FREE UDC PO PRN (20:45)
[2019-05-01] MEDS ORDERED: ACETAMINOPHEN 325MG TABLET PO PRN (20:45)
[2019-05-01] MEDS ORDERED: ONDANSETRON HCL 4MG/2ML INJ IV PRN (20:45)
[2019-05-01] MEDS ORDERED: LORAZEPAM 2MG/ML CPJ IV PRN (20:45)
[2019-05-01] MEDS ORDERED: DOCUSATE SODIUM 100MG CAPSULE PO PRN (20:45)
[2019-05-01] MEDS ORDERED: HYDROCODONE/ACETAMINOPHEN 10/325MG TABLET PO PRN (20:45)
[2019-05-01] MEDS ORDERED: MORPHINE SULFATE 2 MG/ML CPJ (NOT FOR IM USE) IV PRN (20:45)
[2019-05-01] MEDS: BLOOD SUGAR DIAGNOSTIC STRIP TEST SCH (21:18)
[2019-05-01] MEDS ORDERED: INSULIN LISPRO 100 UNITS/ML SUBCUT NR (21:30)
[2019-05-01] MEDS: INSULIN LISPRO 100 UNITS/ML SUBCUT SCH (21:35)
[2019-05-01 22:00] VITALS: BP 99/63
[2019-05-01] MEDS ORDERED: NA PHOS,M-B/NA PHOS,DI-BA ENEMA 118ML PR PRN (22:00)
[2019-05-01] MEDS ORDERED: LEVOFLOXACIN 500MG PREMIX 100 ML IV NR (23:00)
[2019-05-01] MEDS: SODIUM CHLORIDE 0.9% INJ 3ML FLUSH IVF SCH (23:23)
[2019-05-01] MEDS: METHYLPREDNISOLONE SOD SUCC 125 MG/2 ML VIAL IV SCH (23:24)
[2019-05-02 00:28] LABS: CREATINE KINASE 83 IU/L (26-192)
[2019-05-02 00:29] LABS: CREATINE KINASE MB FRACTION 2.4 ng/mL (0.5-3.6)
[2019-05-02 00:52] VITALS: BP 105/49
[2019-05-02] MEDS: IPRATROPIUM/ALBUTEROL 0.5-3(2.5)MG/3ML NEB HHN SCH ×4 (02:48→20:53)
[2019-05-02 04:00] VITALS: BP 103/54
[2019-05-02] MEDS: METHYLPREDNISOLONE SOD SUCC 125 MG/2 ML VIAL IV SCH (05:56)
[2019-05-02] MEDS: BLOOD SUGAR DIAGNOSTIC STRIP TEST SCH ×4 (07:40→21:57)
[2019-05-02 07:48] LABS: CHLORIDE 96 mEq/L (98-107)
[2019-05-02 08:04] LABS: HDL CHOLESTEROL 66 mg/dL (40-59)
[2019-05-02 08:05] LABS: BASOPHILS % 0.1 % (0.0-2.0); HEMATOCRIT. 35.3 % (36.0-48.0); HEMOGLOBIN. 11.8 g/dL (12.0-16.0); LDL CHOLESTEROL 101 mg/dL (5-100); LYMPHOCYTES % 10.3 % (20.0-50.0); MEAN CORPUSCULAR HEMOGLOBIN 29.7 pg (28.0-32.0); MEAN CORPUSCULAR VOLUME 88.8 fL (81.0-99.0); MEAN PLATELET VOLUME 8.3 fl (7.4-10.4); MONOCYTES % 1.2 % (2.0-8.0); NEUTROPHILS % 88.4 % (40.0-76.0); PLATELET 345 x1000/uL (130-400); RED BLOOD CELL COUNT 3.98 mill/uL (4.2-5.4); RED CELL DISTRIBUTION WIDTH 13.8 % (11.6-14.6)
[2019-05-02 08:06] LABS: CREATINE KINASE 79 IU/L (26-192)
[2019-05-02 08:08] LABS: CREATINE KINASE MB FRACTION 2.2 ng/mL (0.5-3.6); T4 FREE 1.22 ng/dL (0.76-1.46)
[2019-05-02] MEDS: ENOXAPARIN 40MG/0.4ML SYR SUBCUT SCH (09:34)
[2019-05-02] MEDS: INSULIN LISPRO 100 UNITS/ML SUBCUT SCH ×4 (09:58→22:18)
[2019-05-02] MEDS: PREDNISONE 20MG TABLET PO SCH (18:38)
[2019-05-02 20:00] VITALS: BP 126/74
[2019-05-02] MEDS ORDERED: LEVOFLOXACIN 500MG PREMIX 100 ML IV SCH (21:00)
[2019-05-02] MEDS: GUAIFENESIN 600MG ER TABLET PO SCH (21:56)
[2019-05-02] MEDS: SODIUM CHLORIDE 0.9% INJ 3ML FLUSH IVF SCH (21:57)
[2019-05-03] VITALS: BP 119/65
[2019-05-03] MEDS: IPRATROPIUM/ALBUTEROL 0.5-3(2.5)MG/3ML NEB HHN SCH ×2 (01:49→08:37)
[2019-05-03 04:00] VITALS: BP 103/51
[2019-05-03] MEDS: BLOOD SUGAR DIAGNOSTIC STRIP TEST SCH (06:34)
[2019-05-03] MEDS: SODIUM CHLORIDE 0.9% INJ 3ML FLUSH IVF SCH (06:34)
[2019-05-03 08:00] VITALS: BP 118/60
[2019-05-03] MEDS: GUAIFENESIN 600MG ER TABLET PO SCH (08:46)
[2019-05-03] MEDS: PREDNISONE 20MG TABLET PO SCH (08:47)
[2019-05-03] MEDS: ENOXAPARIN 40MG/0.4ML SYR SUBCUT SCH (08:48)
[2019-05-03] MEDS: INSULIN LISPRO 100 UNITS/ML SUBCUT SCH (08:57)
[2019-05-03 11:33] VITALS: BP 112/71
[2019-05-03 12:00] VITALS: BP 112/71
== END 2019-05-03 13:40 | disposition home or self-care (01) | DRG 189 ==
LOC: ER 15:11 → 7WST 17:56 → EDBEDREQ 17:58 → ENRESERV 20:07
PROVIDERS: ADMIT Internal Medicine; ATTEND Internal Medicine
DX: J96.00 Acute respiratory failure, unspecified whether with hypoxia or hypercapnia (principal); J44.1 Chronic obstructive pulmonary disease with (acute) exacerbation; R65.10 Systemic inflammatory response syndrome (SIRS) of non-infectious origin without acute organ dysfunction; E11.9 Type 2 diabetes mellitus without complications; F32.9 Major depressive disorder, single episode, unspecified; F41.9 Anxiety disorder, unspecified; I10 Essential (primary) hypertension; M19.90 Unspecified osteoarthritis, unspecified site; Z99.81 Dependence on supplemental oxygen; Z79.84 Long term (current) use of oral hypoglycemic drugs; Z79.899 Other long term (current) drug therapy; Z90.49 Acquired absence of other specified parts of digestive tract
CPT/HCPCS: 36415; 71045; 80061; 82550; 82553; 82962; 83880; 84439; 84443; 84484; 93005; 93970; 94640; 94644; 99285; J1650; J1815; J1956; J2930; J3475; J7512; J7611; J7620

== ENCOUNTER 2019-09-15 13:48 | Inpatient (IN) | payer MEDICARE, MEDICAID ==
[~2019-09-15] VITALS: Ht 154.9 cm; Wt 81.7 kg
[~2019-09-15 13:48] MED LIST changes: -ARIP5TAB19 PO; +ARIP5TAB58 PO; -MECL-109 PO; +MECL-159 PO
[2019-09-15] MEDS ORDERED: ALBUTEROL (0.083%) 2.5MG/3ML NEB HHN STA (14:50)
[2019-09-15] MEDS ORDERED: METHYLPREDNISOLONE SOD SUCC 125 MG/2 ML VIAL IV STA (14:50)
[2019-09-15] MEDS ORDERED: IPRATROPIUM BROMIDE (0.02%) 0.5MG/2.5ML NEB HHN STA (14:50)
[2019-09-15 17:05] LABS: EOSINOPHILS % 6.5 % (0.0-5.0); HEMATOCRIT. 36.1 % (36.0-48.0); LYMPHOCYTES % 16.6 % (20.0-50.0); MEAN CORPUSCULAR HEMOGLOBIN 29.9 pg (28.0-32.0); MEAN CORPUSCULAR VOLUME 90.1 fL (81.0-99.0); MEAN PLATELET VOLUME 8.2 fl (7.4-10.4); MONOCYTES % 4.7 % (2.0-8.0); NEUTROPHILS % 71.2 % (40.0-76.0); PLATELET 319 x1000/uL (130-400); RED BLOOD CELL COUNT 4.01 mill/uL (4.2-5.4)
[2019-09-15 17:13] LABS: CHLORIDE 100 mEq/L (98-107)
[2019-09-15] MEDS ORDERED: ACETAMINOPHEN 325MG TABLET PO PRN (23:30)
[2019-09-15] MEDS ORDERED: DOCUSATE SODIUM 100MG CAPSULE PO PRN (23:30)
[2019-09-15] MEDS ORDERED: GUAIFENESIN 200MG/10ML SUGAR FREE UDC PO PRN (23:30)
[2019-09-15] MEDS ORDERED: HYDROCODONE/ACETAMINOPHEN 5/325MG TABLET PO PRN (23:30)
[2019-09-15] MEDS ORDERED: MAGNESIUM/ALUMINUM HYDROXIDE/SIMETHICONE 30ML UDC PO PRN (23:30)
[2019-09-15] MEDS ORDERED: ONDANSETRON HCL 4MG/2ML INJ IV PRN (23:30)
[2019-09-15] MEDS ORDERED: CLONIDINE 0.1MG TABLET PO PRN (23:30)
[2019-09-15] MEDS ORDERED: IPRATROPIUM/ALBUTEROL 0.5-3(2.5)MG/3ML NEB NEB PRN (23:30)
[2019-09-16 05:35] LABS: BASOPHILS % 0.3 % (0.0-2.0); HEMATOCRIT. 36.3 % (36.0-48.0); HEMOGLOBIN. 12.5 g/dL (12.0-16.0); LYMPHOCYTES % 11.7 % (20.0-50.0); MEAN CORPUSCULAR HEMOGLOBIN 31.1 pg (28.0-32.0); MEAN CORPUSCULAR VOLUME 89.9 fL (81.0-99.0); MEAN PLATELET VOLUME 8.5 fl (7.4-10.4); PLATELET 339 x1000/uL (130-400); RED BLOOD CELL COUNT 4.03 mill/uL (4.2-5.4); RED CELL DISTRIBUTION WIDTH 13.9 % (11.6-14.6)
[2019-09-16 05:53] LABS: LDL CHOLESTEROL 112 mg/dL (5-100)
[2019-09-16 05:54] LABS: CREATINE KINASE 76 IU/L (26-192); HDL CHOLESTEROL 77 mg/dL (40-59)
[2019-09-16 05:56] LABS: CREATINE KINASE MB FRACTION 2.1 ng/mL (0.5-3.6)
[2019-09-16 10:00] VITALS: BP 117/64
[2019-09-16] MEDS: OMEPRAZOLE 20MG CAPSULE EXTENDED RELEASE PO SCH (10:56)
[2019-09-16] MEDS: ASPIRIN 81MG EC TABLET PO SCH (10:56)
[2019-09-16] MEDS: ENOXAPARIN 40MG/0.4ML SYR SUBCUT SCH (10:56)
[2019-09-16 11:00] VITALS: BP 117/64
[2019-09-16 12:00] VITALS: BP 112/67
[2019-09-16] MEDS: BLOOD SUGAR DIAGNOSTIC STRIP TEST SCH ×3 (13:00→21:08)
[2019-09-16] MEDS: INSULIN LISPRO 100 UNITS/ML SUBCUT SCH ×3 (13:00→21:24)
[2019-09-16] MEDS ORDERED: DEXTROSE 50% WATER 50ML SYRINGE IV PRN (13:00)
[2019-09-16] MEDS: METHYLPREDNISOLONE SOD SUCC 40 MG/ML VIAL IV SCH ×3 (13:01→21:25)
[2019-09-16] MEDS ORDERED: MAGNESIUM 4 G PREMIX 100 ML IV NR (15:00)
[2019-09-16 16:00] VITALS: BP 121/71
[2019-09-16 16:42] LABS: CREATINE KINASE 73 IU/L (26-192); CREATINE KINASE MB FRACTION 2.2 ng/mL (0.5-3.6)
[2019-09-16 20:00] VITALS: BP 125/65
[2019-09-16] MEDS: IPRATROPIUM/ALBUTEROL 0.5-3(2.5)MG/3ML NEB HHN SCH (22:16)
[2019-09-17] VITALS: BP 148/78
[2019-09-17] MEDS: IPRATROPIUM/ALBUTEROL 0.5-3(2.5)MG/3ML NEB HHN SCH ×7 (01:50→23:48)
[2019-09-17 04:00] VITALS: BP 140/76
[2019-09-17] MEDS: OMEPRAZOLE 20MG CAPSULE EXTENDED RELEASE PO SCH (06:11)
[2019-09-17] MEDS: METHYLPREDNISOLONE SOD SUCC 40 MG/ML VIAL IV SCH ×3 (06:12→23:04)
[2019-09-17] MEDS: BLOOD SUGAR DIAGNOSTIC STRIP TEST SCH ×4 (06:15→21:00)
[2019-09-17] MEDS: INSULIN LISPRO 100 UNITS/ML SUBCUT SCH ×4 (06:36→21:11)
[2019-09-17 07:05] LABS: HEMATOCRIT. 34.6 % (36.0-48.0); HEMOGLOBIN. 11.7 g/dL (12.0-16.0); LYMPHOCYTES % 17.3 % (20.0-50.0); MEAN CORPUSCULAR HEMOGLOBIN 30.3 pg (28.0-32.0); MEAN CORPUSCULAR VOLUME 89.5 fL (81.0-99.0); MONOCYTES % 2.8 % (2.0-8.0); NEUTROPHILS % 79.9 % (40.0-76.0); PLATELET 322 x1000/uL (130-400); RED BLOOD CELL COUNT 3.87 mill/uL (4.2-5.4); RED CELL DISTRIBUTION WIDTH 13.8 % (11.6-14.6)
[2019-09-17 08:00] VITALS: BP 125/71
[2019-09-17] MEDS: ASPIRIN 81MG EC TABLET PO SCH (09:08)
[2019-09-17] MEDS: ENOXAPARIN 40MG/0.4ML SYR SUBCUT SCH (09:09)
[2019-09-17 12:00] VITALS: BP 116/68
[2019-09-17] MEDS: ARIPIPRAZOLE 5MG TABLET PO SCH (12:26)
[2019-09-17] MEDS: HYDROCHLOROTHIAZIDE 25MG TABLET PO SCH (12:27)
[2019-09-17] MEDS: PAROXETINE HCL 10MG TABLET PO SCH (12:27)
[2019-09-17] MEDS: BENAZEPRIL 10MG TABLET PO SCH (12:27)
[2019-09-17 16:00] VITALS: BP 104/55
[2019-09-17] MEDS: METFORMIN HCL 500MG TABLET PO SCH (17:35)
[2019-09-17 20:00] VITALS: BP 99/54
[2019-09-18] VITALS: BP 106/58
[2019-09-18] MEDS: IPRATROPIUM/ALBUTEROL 0.5-3(2.5)MG/3ML NEB HHN SCH ×3 (03:46→12:17)
[2019-09-18 04:00] VITALS: BP 134/86
[2019-09-18] MEDS: BLOOD SUGAR DIAGNOSTIC STRIP TEST SCH ×3 (06:05→17:01)
[2019-09-18] MEDS: METHYLPREDNISOLONE SOD SUCC 40 MG/ML VIAL IV SCH ×2 (06:26→14:48)
[2019-09-18] MEDS: METFORMIN HCL 500MG TABLET PO SCH ×2 (06:32→17:17)
[2019-09-18] MEDS: INSULIN LISPRO 100 UNITS/ML SUBCUT SCH ×3 (06:34→17:01)
[2019-09-18 08:00] VITALS: BP 118/68
[2019-09-18] MEDS: HYDROCHLOROTHIAZIDE 25MG TABLET PO SCH (08:59)
[2019-09-18] MEDS: ARIPIPRAZOLE 5MG TABLET PO SCH (08:59)
[2019-09-18] MEDS: FAMOTIDINE 20MG TABLET PO SCH ×2 (08:59→17:17)
[2019-09-18] MEDS: ASPIRIN 81MG EC TABLET PO SCH (08:59)
[2019-09-18] MEDS: PAROXETINE HCL 10MG TABLET PO SCH (08:59)
[2019-09-18] MEDS: BENAZEPRIL 10MG TABLET PO SCH (09:00)
[2019-09-18] MEDS: ENOXAPARIN 40MG/0.4ML SYR SUBCUT SCH (09:01)
[2019-09-18] MEDS ORDERED: ALBU18HF2 IH (09:06)
[2019-09-18] MEDS ORDERED: FAMO20TA8 MT (09:06)
[2019-09-18] MEDS ORDERED: P20 MT (09:06)
[2019-09-18 12:00] VITALS: BP 104/53
[2019-09-18 16:00] VITALS: BP 114/63
[2019-09-18 16:13] VITALS: BP 114/63
== END 2019-09-18 18:17 | disposition home or self-care (01) | DRG 205 ==
LOC: ER 14:04 → 5WST 17:24 → EDBEDREQ 17:26 → ENRESERV 09-16 07:58
PROVIDERS: ADMIT Internal Medicine; ATTEND Internal Medicine
DX: M94.0 Chondrocostal junction syndrome [Tietze] (principal); J96.00 Acute respiratory failure, unspecified whether with hypoxia or hypercapnia; J44.1 Chronic obstructive pulmonary disease with (acute) exacerbation; J45.901 Unspecified asthma with (acute) exacerbation; E11.9 Type 2 diabetes mellitus without complications; E66.9 Obesity, unspecified; E78.5 Hyperlipidemia, unspecified; E83.42 Hypomagnesemia; R00.0 Tachycardia, unspecified; I10 Essential (primary) hypertension; Z99.81 Dependence on supplemental oxygen; Z91.041 Radiographic dye allergy status; Z79.899 Other long term (current) drug therapy; Z68.34 Body mass index [BMI] 34.0-34.9, adult; Z71.89 Other specified counseling
CPT/HCPCS: 36415; 71045; 80048; 80053; 80061; 82550; 82553; 82962; 83735; 83880; 84443; 84484; 85025; 87804; 93005; 93970; 94640; 99285; J1650; J1815; J2920; J2930; J3475

== ENCOUNTER 2021-10-18 04:36 | Inpatient (IN) | payer MEDICARE, MEDICAID ==
[~2021-10-18] VITALS: Ht 160 cm; Wt 64.9 kg
[~2021-10-18 04:36] MED LIST changes: +ALBU18HF2 IH; +FAMO20TA8 MT; +HYDR-459 PO; +IPRA4AER INH; +MONT4GRA2 MT; +P20 MT
[2021-10-18] MEDS ORDERED: IPRATROPIUM BROMIDE (0.02%) 0.5MG/2.5ML NEB HHN STA (04:51)
[2021-10-18] MEDS ORDERED: METHYLPREDNISOLONE SOD SUCC 125 MG/2 ML VIAL IV STA (04:51)
[2021-10-18] MEDS: IPRATROPIUM/ALBUTEROL 0.5-3(2.5)MG/3ML NEB HHN SCH (04:57)
[2021-10-18] MEDS ORDERED: MAGNESIUM 2 G PREMIX 50 ML IV STA (05:19)
[2021-10-18] MEDS: ALBUTEROL (0.083%) 2.5MG/3ML NEB HHN SCH (05:23)
[2021-10-18 05:35] LABS: BASOPHILS % 1.4 % (0.0-2.0); CHLORIDE 105 mEq/L (98-107); EOSINOPHILS % 10.5 % (0.0-5.0); HEMOGLOBIN. 12.3 g/dL (12.0-16.0); LYMPHOCYTES % 24.3 % (20.0-50.0); MEAN CORPUSCULAR HEMOGLOBIN 29.1 pg (28.0-32.0); MEAN CORPUSCULAR VOLUME 87.6 fL (81.0-99.0); MEAN PLATELET VOLUME 7.4 fl (7.4-10.4); MONOCYTES % 6.1 % (2.0-8.0); NEUTROPHILS % 57.7 % (40.0-76.0); PLATELET 260 x1000/uL (130-400); RED BLOOD CELL COUNT 4.22 mill/uL (4.2-5.4); RED CELL DISTRIBUTION WIDTH 14.4 % (11.6-14.6)
[2021-10-18] MEDS ORDERED: HYDROXYZINE 25MG TABLET PO PRN (09:00)
[2021-10-18] MEDS: PAROXETINE HCL 10MG TABLET PO SCH (09:55)
[2021-10-18] MEDS: ARIPIPRAZOLE 5MG TABLET PO SCH (09:55)
[2021-10-18] MEDS ORDERED: ACETAMINOPHEN 325MG TABLET PO PRN (13:45)
[2021-10-18] MEDS ORDERED: ONDANSETRON HCL 4MG/2ML INJ IV PRN (13:45)
[2021-10-18] MEDS: METHYLPREDNISOLONE SOD SUCC 40 MG/ML VIAL IV SCH ×2 (14:35→22:22)
[2021-10-18] MEDS: GABAPENTIN 100MG CAPSULE PO SCH ×2 (15:23→22:23)
[2021-10-18 16:16] VITALS: BP 161/97
[2021-10-18] MEDS ORDERED: BENZ100C86 PO (16:26)
[2021-10-18] MEDS ORDERED: GABA-529 PO (16:36)
[2021-10-18] MEDS ORDERED: MIDO5TAB4 PO (16:36)
[2021-10-18] MEDS ORDERED: ATOR20TA65 PO (16:36)
[2021-10-18 16:38] VITALS: BP 161/97
[2021-10-18] MEDS: AMLODIPINE 10MG TABLET PO SCH (18:05)
[2021-10-18] MEDS ORDERED: *PATIENT'S OWN MEDICATION STORAGE XX SCH (19:00)
[2021-10-18 20:00] VITALS: BP 147/88
[2021-10-18] MEDS ORDERED: FAMOTIDINE 20MG TABLET PO SCH (21:00)
[2021-10-19] VITALS (7 sets, daily range): BP systolic 117–153; BP diastolic 56–86
[2021-10-19] MEDS: IPRATROPIUM/ALBUTEROL 0.5-3(2.5)MG/3ML NEB HHN SCH ×4 (01:02→14:21)
[2021-10-19] MEDS: METHYLPREDNISOLONE SOD SUCC 40 MG/ML VIAL IV SCH ×2 (06:18→13:49)
[2021-10-19] MEDS: GABAPENTIN 100MG CAPSULE PO SCH ×2 (06:18→13:49)
[2021-10-19] MEDS: AMLODIPINE 10MG TABLET PO SCH (08:50)
[2021-10-19] MEDS: PAROXETINE HCL 10MG TABLET PO SCH (08:50)
[2021-10-19] MEDS: ARIPIPRAZOLE 5MG TABLET PO SCH (08:50)
[2021-10-19] MEDS ORDERED: P20 MT (11:00)
[2021-10-19] MEDS ORDERED: IPRA3AMP9 NEB (11:00)
== END 2021-10-19 18:29 | disposition home or self-care (01) | DRG 190 ==
LOC: ER 04:36 → EDBEDREQSVC 08:14 → 5WST 12:23 → EDBEDREQ 12:59 → EDBEDREQTM 12:59 → EDBEDREQSVC 12:59
PROVIDERS: ADMIT Internal Medicine; ATTEND Internal Medicine
DX: J44.1 Chronic obstructive pulmonary disease with (acute) exacerbation (principal); J96.20 Acute and chronic respiratory failure, unspecified whether with hypoxia or hypercapnia; E87.1 Hypo-osmolality and hyponatremia; F33.3 Major depressive disorder, recurrent, severe with psychotic symptoms; E11.9 Type 2 diabetes mellitus without complications; F41.9 Anxiety disorder, unspecified; Z20.822 Contact with and (suspected) exposure to COVID-19; I10 Essential (primary) hypertension; Z79.899 Other long term (current) drug therapy; Z91.041 Radiographic dye allergy status
CPT/HCPCS: 36415; 71045; 78582; 80053; 83880; 84484; 85025; 85379; 87426; 93005; 94640; 94644; 99285; A9558; J2920; J2930; J3475

== ENCOUNTER 2022-01-16 19:38 | Emergency (ER) | payer MEDICARE, MEDICAID ==
[~2022-01-16] VITALS: Ht 157.5 cm; Wt 69.0 kg
[~2022-01-16 19:38] MED LIST changes: +ATOR20TA65 PO; +BENZ100C86 PO; +GABA-529 PO; +IPRA3AMP9 NEB; +MIDO5TAB4 PO
[2022-01-16] MEDS ORDERED: IBUPROFEN 600MG TABLET PO ONE (21:00)
[2022-01-16 21:05] VITALS: BP 154/76
[2022-01-16] MEDS ORDERED: IBUP-2029 MT (22:28)
== END 2022-01-16 22:38 | disposition home or self-care (01) ==
LOC: ER 19:38
DX: S20.211A Contusion of right front wall of thorax, initial encounter (principal); W18.39XA Other fall on same level, initial encounter; Y93.89 Activity, other specified; Y92.89 Other specified places as the place of occurrence of the external cause; Y99.8 Other external cause status; J44.9 Chronic obstructive pulmonary disease, unspecified; I10 Essential (primary) hypertension; Z79.899 Other long term (current) drug therapy
CPT/HCPCS: 71101; 93005; 99283